=== PATIENT | female | born 1980 | race Caucasian/White ===

== ENCOUNTER 2022-10-13 06:30 | Emergency (ER) | payer OTHER ==
[~2022-10-13] VITALS: Ht 165.1 cm; Wt 51.3 kg
[~2022-10-13 06:30] MED LIST: BENA5TAB PO; BUPR-10 PO; CLON1TAB PO; DULO20EC PO; EMPA25TA PO; GABA400C PO; INSU100V13 SQ; INSU300S SC; METF-350 PO; PITA4TAB PO; SEMA0.25 SQ; SPIR50TA PO
[2022-10-13 06:34] VITALS: BP 121/79
--- NOTE | 2022-10-13 06:47 | NUR ---
TO LOBBY FOLLOWING TRIAGE
--- NOTE | 2022-10-13 07:13 | NUR ---
PT AMB TO BED 11.
[2022-10-13] MEDS ORDERED: MORPHINE SULFATE 2 MG/ML SYR IVP ONE (07:15)
[2022-10-13] MEDS ORDERED: ONDANSETRON 4 MG/2 ML VIAL IVP ONE (07:15)
[2022-10-13 07:36] LABS: BASOPHILS % (AUTO) 0.3 % (0.0-2.0); EOSINOPHILS # (AUTO) 0.1 K/uL (0-0.4); EOSINOPHILS % (AUTO) 2.1 % (0.0-4.0); HEMATOCRIT 30.9 % (36-48); HEMOGLOBIN 9.8 g/dL (12.0-16.0); LYMPHOCYTES # (AUTO) 1.1 K/uL (2.5-16.5); LYMPHOCYTES % (AUTO) 29.4 % (20.5-51.1); MEAN CORPUSCULAR HEMOGLOBIN 26 pg (27-31); MEAN CORPUSCULAR HGB CONC 32 g/dL (33-37); MONOCYTES # (AUTO) 0.1 K/uL (0.8-1.0); MONOCYTES % (AUTO) 2.4 % (1.7-9.3); NEUTROPHILS # (AUTO) 2.4 K/uL (1.8-7.7); NEUTROPHILS % (AUTO) 65.8 % (42.2-75.2); PLATELET COUNT (AUTO) 338 K/uL (140-450); RED BLOOD CELL COUNT(AUTO) 3.76 MIL/uL (4.20-5.40); RED CELL DISTRIBUTION WIDTH 16.1 % (11.6-13.7); WHITE BLOOD COUNT (AUTO) 3.6 K/uL (4.8-10.8)
[2022-10-13 07:48] LABS: PROTHROMBIN TIME 9.4 secs (10.8-13.4)
[2022-10-13 07:51] LABS: ANION GAP 9.3 (8-16); CARBON DIOXIDE 30.2 mmol/L (21-32); CREATININE 0.5 mg/dL (0.6-1.3); POTASSIUM 3.5 mmol/L (3.5-5.1)
[2022-10-13 07:52] LABS: ALBUMIN 1.6 g/dL (3.4-5.0); TOTAL BILIRUBIN 0.2 mg/dL (0.0-1.0)
[2022-10-13 07:54] LABS: LIPASE 111 U/L (73-393)
--- NOTE | 2022-10-13 08:05 | NUR ---
42 y/o female, c/o sob, abd pain, cp, bloating, nausea, general weakness and loss of appetite for 3 months, worsened over the past week. pt was admitted and dx at [facility] and dx yesterday. states she had 1 chemotherapy session. has history of ascites and pleural effusions in the past. pt was admitted here on 09/23/2022 and had a paracentesis and thoracentesis done at that time. upon arrival, pt has picc line present on right upper arm, flushes with no resistance. pmh: cancer (stomach, fallopian), dm2, htn, inguinal hernia nka
--- NOTE | 2022-10-13 09:01 | NUR ---
urine given to lab
[2022-10-13] MEDS ORDERED: ACET-8386 PO (09:17)
[2022-10-13] MEDS ORDERED: ONDA-188 PO (09:17)
[2022-10-13 09:21] LABS: APPEARANCE,URINE CLEAR (CLEAR); BILIRUBIN,URINE NEGATIVE (NEGATIVE); BLOOD, URINE NEGATIVE (NEGATIVE); COLOR,URINE YELLOW (YELLOW); LEUKOCYTE ESTERASE ,URINE NEGATIVE (NEGATIVE); NITRITE, URINE NEGATIVE (NEGATIVE); PH,URINE 6.5 (5.0-9.0); UGLUCOSE NEGATIVE (NEGATIVE)
[2022-10-13 09:30] VITALS: BP 121/79
--- NOTE | 2022-10-13 09:37 | NUR ---
Patient discharged with v/s stable. Written and verbal after care instructions given and explained. Patient alert, oriented and verbalized understanding of instructions. Ambulatory with steady gait. All questions addressed prior to discharge. ID band removed. Patient advised to follow up with PMD. Rx of hydrocodone, ondansteron (sent) given. Patient educated on indication of medication including possible reaction and side effects. Opportunity to ask questions provided and answered. copy of labs given
--- NOTE | 2022-10-13 09:42 | NUR ---
waiting for son in lobby
== END 2022-10-13 09:30 | disposition home or self-care (01) ==
LOC: MED 06:30
DX: R18.8 Other ascites (principal); R06.00 Dyspnea, unspecified; C56.2 Malignant neoplasm of left ovary; I10 Essential (primary) hypertension; E11.9 Type 2 diabetes mellitus without complications; Z79.4 Long term (current) use of insulin; Z79.899 Other long term (current) drug therapy
CPT/HCPCS: 36415; 71045; 80053; 81003; 81025; 83605; 83690; 83880; 84484; 85025; 85610; 85730; 87040; 87086; 93005; 96374; 96375; 99285; J2270; J2405; Q0092

== ENCOUNTER 2022-11-20 18:12 | Emergency (ER) | payer OTHER ==
[~2022-11-20 18:12] MED LIST changes: +ACET-8905 PO; +ONDA-188 PO
--- NOTE | 2022-11-20 18:30 | NUR ---
left before triage
== END 2022-11-20 18:30 | disposition left against medical advice (07) ==
LOC: MED 18:12
DX: R10.9 Unspecified abdominal pain (principal); Z53.21 Procedure and treatment not carried out due to patient leaving prior to being seen by health care provider